=== PATIENT | female | born 1975 ===

== ENCOUNTER 2020-03-28 07:00 | Day surgery (SDC) | payer OTHER | END 2020-03-28 11:37 | disposition home or self-care (01) | LOC: AMB-ENDOS 07:00 | PROVIDERS: ATTEND Surgery | DX: K62.89 Other specified diseases of anus and rectum (principal); K64.8 Other hemorrhoids; Z20.828 Contact with and (suspected) exposure to other viral communicable diseases ==

== ENCOUNTER 2023-07-25 11:45 | Outpatient (CLI) | payer OTHER ==
[~2023-07-25 11:45] MED LIST: DICLOFENAC POTA50 MG PO; NORFLEX100MG PO
== END 2023-07-25 11:56 | disposition home or self-care (01) ==
LOC: MRI 11:45
DX: M62.830 Muscle spasm of back (principal); M53.3 Sacrococcygeal disorders, not elsewhere classified; M54.50 Low back pain, unspecified
CPT/HCPCS: 72148